=== PATIENT | male | born 2005 | race Caucasian/White ===

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

== ENCOUNTER → 2024-03-09 | Outpatient (REF) | payer OTHER ==
[2024-03-09 14:32] LABS: CHOLESTEROL RISK RATIO 4.37 (<5); HDL CHOLESTEROL 39.5 MG/DL (>40); LDL CHOLESTEROL 103.3 MG/DL (<100); NON-HDL-C 133.5 MG/DL; THYROID STIMULATING HORMONE 1.819 uIU/ML (0.48-4.17); TOTAL 25(OH) VITAMIN D 32.1 NG/ML (20.0-100.0)
[2024-03-09 14:33] LABS: ESTRADIOL 20.7 PG/ML (<39.8)
[2024-03-09 14:34] LABS: FREE T4 1.13 NG/DL (0.83-1.43)
== END ==
LOC: M LABDRWAD 13:10
PROVIDERS: ATTEND Pediatrics
DX: E66.9 Obesity, unspecified (principal); N62 Hypertrophy of breast